=== PATIENT | female | born 1995 | race Caucasian/White ===

== ENCOUNTER 2018-09-19 19:29 | Inpatient (IN) | payer OTHER ==
[~2018-09-19] VITALS: Ht 170.2 cm; Wt 80.8 kg
[2018-09-19] MEDS: fentaNYL PF VIAL 100 MCG/2 ML VIAL IV PRN (20:14)
[2018-09-19] MEDS: ONDANSETRON PF 4 MG/2 ML VIAL. IV PRN (20:15)
[2018-09-19] MEDS: IV NORMAL SALINE 1000ML BAG 1,000 ML IV SCH (20:17)
[2018-09-19] MEDS ORDERED: PROCHLORPERAZINE 10 MG/2 ML VIAL. IV PRN (22:15)
[2018-09-19] MEDS: KETOROLAC 15 MG/ML VIAL. IV PRN ×2 (22:22→22:24)
[2018-09-19] MEDS: PROCHLORPERAZINE 10 MG/2 ML VIAL. IV PRN (22:23)
[2018-09-19 23:00] VITALS: BP 134/72
[2018-09-20] VITALS (20 sets, daily range): BP systolic 109–172; BP diastolic 39–94
--- NOTE | 2018-09-20 03:41 | NUR ---
The patient, JOSE WHAET, 23 y/o, F admitted by BRYANT TRUJILLO MD. Pt. arrived on unit at 1900 via gurney by EMS. Pt. was [place]'s transfer. Call light within reach, bed low. Pt. was given written information regarding hospital policies, unit procedures and contact persons. Valuables were left with pt. in her closet. Pt. complains of pain and nausea. Dr. Trujillo called for orders. Orders placed and followed. Will continue to monitor.
[2018-09-20 04:32] LABS: HEMATOCRIT 33.1 % (36.0-47.0); RED BLOOD COUNT 3.66 x10^6/uL (3.50-5.40); RED CELL DISTRIBUTION WIDTH 13.1 % (11.5-14.5); WHITE BLOOD COUNT 7.5 x10^3/uL (4.0-11.0)
[2018-09-20 04:58] LABS: ALBUMIN/GLOBULIN RATIO 1.1 (1.0-1.7); CALCIUM 8.2 mg/dL (8.5-10.1); CREATININE 0.7 mg/dL (0.6-1.0); GFR 102.8; POTASSIUM 3.3 mmol/L (3.5-5.1); TOTAL BILIRUBIN 3.5 mg/dL (0.2-1.0); TOTAL PROTEIN 5.7 g/dL (6.4-8.2)
[2018-09-20] MEDS: fentaNYL PF VIAL 100 MCG/2 ML VIAL IV PRN ×5 (05:39→15:32)
[2018-09-20] MEDS: PROCHLORPERAZINE 10 MG/2 ML VIAL. IV PRN ×2 (05:39→13:03)
[2018-09-20] MEDS: IV NORMAL SALINE 1000ML BAG 1,000 ML IV SCH ×2 (05:39→15:45)
--- NOTE | 2018-09-20 06:10 | NUR ---
Dr. Dick consulted by Dr. Pace. Consult called by this nurse at 0610.
[2018-09-20] MEDS ORDERED: IV RINGERS,LACTATED 1000ML 1,000 ML IV SCH (07:19)
[2018-09-20] MEDS ORDERED: PROCHLORPERAZINE 10 MG/2 ML VIAL. IV PRN (07:30)
[2018-09-20] MEDS ORDERED: LIDOCAINE 1% PF 2 ML VIAL. ID PRN (07:30)
[2018-09-20] MEDS ORDERED: ONDANSETRON PF 4 MG/2 ML VIAL. IV PRN (07:30)
[2018-09-20] MEDS ORDERED: fentaNYL PF VIAL 100 MCG/2 ML VIAL IV PRN (07:30)
[2018-09-20 09:29] LABS: U PREG PATIENT NEGATIVE (NEG)
--- NOTE | 2018-09-20 09:31 | PDOC2 ---
GI CONSULT Reason For Consult: Abnormal LFTs HPI: HPI: 23 y/o female w/ recurrent right-sided abd pain since late 2016, worse and occurring more frequently for a few months. Latest flare began on Monday, improved Monday, then was worse Monday after eating a chicken sandwich. Pain in RUQ w/ radiation down to RLQ wrapping around to lower back and radiating up to right shoulder blade. "Stabbing and aching." Has some heartburn but only if has been vomiting. No dysphagia. No hematemesis. Typically has "diarrhea" - bowl habits unchanged. No hematochezia or melena. No weight loss. No previous EGD or colonoscopy. Denies PUD, liver, or pancreas history. No NSAIDs. In [facility] ER 09/16/18, WBC 13.8, Hgb 14, normal LFTs. Abd US showed gallstones and sludge w/o biliary ductal dilatation. Pelvic US showed 2 echogenic lesions of right ovary (ddx hemorrhagic cysts or endometriosis). CT A/P w/ IV contrast showed linear calcification at posterior gallbladder, right adnexal lesion, question mild wall thickening of descending colon, normal appendix, and small hiatal hernia. ER note indicates suspicion for UTI, was discharged on Keflex, Reglan, and Zofran. Labs on 09/19/18 showed normal WBC, Hgb 12.8, INR 1.1, normal LFTs except for AST 56, and normal lipase. Today, labs show normal WBC and lipase, Hgb 11, bili 3.5, AST 812, ALT 673, Alk Phos 151. Plans for cholecystectomy w/ IOC. PMH: PMH: anxiety/depression Social History: Smoke: <1 pack per day ("just if they're there") ALCOHOL: other (was drinking heavily for a time but sober x 3 months) Drugs: Marijuana (daily) ROS: GEN: Denies fevers, chills, sweats HEENT: Denies blurred vision, sore throat CV: Denies chest pain RESP: Denies shortness of air, cough GI: Per HPI : Denies hematuria, dysuria ENDO: Denies weight changes NEURO: Denies confusion, dizziness MSK: Denies weakness, joint pain/swelling SKIN: Denies jaundice, pruritus Vitals: Vitals: Vital Signs Date Time Temp Pulse Resp B/P (MAP) Pulse Ox O2 Delivery O2 Flow Rate FiO2 09/20/18 07:00 98.9 78 18 118/70 (86) 96 Room Air 98.9 Labs: Labs: Laboratory Tests Test 09/20/18 04:10 White Blood Count 7.5 x10^3/uL (4.0-11.0) Red Blood Count 3.66 x10^6/uL (3.50-5.40) Hemoglobin 11.0 g/dL (12.0-15.5) Hematocrit 33.1 % (36.0-47.0) Mean Corpuscular Volume 90 fL (79-100) Mean Corpuscular Hemoglobin 30 pg (25-35) Mean Corpuscular Hemoglobin Concent 33 g/dL (31-37) Red Cell Distribution Width 13.1 % (11.5-14.5) Platelet Count 148 x10^3/uL (140-400) Sodium Level 140 mmol/L (136-145) Potassium Level 3.3 mmol/L (3.5-5.1) Chloride Level 104 mmol/L (98-107) Carbon Dioxide Level 24 mmol/L (21-32) Anion Gap 12 (6-14) Blood Urea Nitrogen 6 mg/dL (7-20) Creatinine 0.7 mg/dL (0.6-1.0) Estimated GFR (Cockcroft-Gault) 102.8 BUN/Creatinine Ratio 9 (6-20) Glucose Level 95 mg/dL (70-99) Calcium Level 8.2 mg/dL (8.5-10.1) Total Bilirubin 3.5 mg/dL (0.2-1.0) Aspartate Amino Transf (AST/SGOT) 872 U/L (15-37) Alanine Aminotransferase (ALT/SGPT) 673 U/L (14-59) Alkaline Phosphatase 157 U/L (46-116) Total Protein 5.7 g/dL (6.4-8.2) Albumin 3.0 g/dL (3.4-5.0) Albumin/Globulin Ratio 1.1 (1.0-1.7) Lipase 88 U/L (73-393) Allergies: Coded Allergies: No Known Drug Allergies (Unverified , 09/19/18) no allergies per pt. Medications: Current Medications Medications (Trade) Dose Ordered Sig/Lucretia Route PRN Reason Start Time Stop Time Status Last Admin Dose Admin Fentanyl Citrate (Fentanyl 2ml Vial) 50 mcg PRN Q3HRS PRN IV MODERATE TO SEVERE PAIN 09/19/18 19:45 09/20/18 05:39 Ondansetron HCl (Zofran) 4 mg PRN Q6HRS PRN IV NAUSEA/VOMITING 09/19/18 19:45 09/19/18 20:15 Sodium Chloride 1,000 ml @ 100 mls/hr Q10H IV 09/19/18 19:45 09/20/18 05:39 Prochlorperazine Edisylate (Compazine) 5 mg PRN Q6HRS PRN IV MODERATE NAUSEA/VOMITING 2ND 09/19/18 22:15 09/20/18 05:39 Ketorolac Tromethamine (Toradol 15mg Vial) 15 mg PRN Q6HRS PRN IV MODERATE PAIN 09/19/18 22:15 09/24/18 22:14 09/19/18 22:24 Imaging: Imaging: Per HPI. PE: GEN: NAD HEENT: Atraumatic, PERRL LUNGS: CTAB HEART: RRR ABD: NABS, S/ND, vague RUQ---> epigastric tenderness EXTREMITY: No edema SKIN: No rashes, no jaundice +tattoos NEURO/PSYCH: A & O 3 A/P: A/P: Recurrent abd pain, n/v Normocytic anemia, elevated LFTs Cholelithiasis/sludge Occasional heartburn CRC screen - average risk +marijuana, h/o heavy alcohol use (now sober) -- No biliary dilatation on US on 09/16/18. Monitor labs, await IOC. Add acid-financial aid. ALEJANDRINA BURRIS Sep 20, 2018 09:31
[2018-09-20] MEDS: PANTOPRAZOLE IV PUSH 40 MG VIAL. IVP SCH (09:52)
[2018-09-20] MEDS: PIPERACILLIN/TAZOBACTAM 3.375 GM in IV NORMAL SALINE 50ML 50 ML IV SCH ×2 (09:53→19:01)
--- NOTE | 2018-09-20 09:56 | HP ---
ADMIT DATE: 09/19/2018 HISTORY OF PRESENT ILLNESS: The patient is a 23-year-old female patient who presented yet again to the Emergency Room of [facility] with a complaint of abdominal pain. She apparently was extensively investigated and has had a CT scan of the abdomen and pelvis, which showed that the gallbladder was mildly distended with echogenic foci within the gallbladder with shadowing compatible with gallstones, no gallbladder wall thickening and no evidence of biliary ductal dilatation. There also appear to be some gallbladder sludge. She has had hepatobiliary scan, which showed delayed filling of the proximal gallbladder or cystic duct after morphine administration, probably cholecystitis, probably chronic cholecystitis, and therefore, the patient was transferred to [facility] to consult the surgical team for possible laparoscopic cholecystectomy. PAST MEDICAL HISTORY: Unremarkable. PAST SURGICAL HISTORY: Significant for wisdom teeth extraction, . HOME MEDICATIONS: Consist of Zoloft 100 mg once a day. She is also on a list of other medication that she is not really on recently. FAMILY HISTORY: She has one brother and one sister, younger and healthy. She does not know her biological father. Her mother is alive at age of 45 and has diabetes and thyroid disease. SOCIAL HISTORY: She is single, has one daughter 5 years old. She smokes 1-2 cigarettes a day, drinks alcohol occasionally, smokes marijuana. 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 REVIEW OF SYSTEMS: As per history of present illness. PHYSICAL EXAMINATION GENERAL: When I saw her today, she looked well and was clearly in no apparent respiratory distress. Slightly pale, but no jaundice, cyanosis or thyromegaly. No jugular venous distension. No lower limb edema. VITAL SIGNS: Her heart rate was 90, her blood pressure was 134/72, temperature was 99, respiratory rate was 18 and oxygen saturation was 95%. HEAD, EYES, EARS, NOSE AND THROAT: Showed normocephalic, atraumatic. NECK: Supple. HEART: Showed normal first and second heart sounds. No gallop, rub or murmur. CHEST: Clear to auscultation. No crepitation or rhonchi. ABDOMEN: Scaphoid, soft with tenderness mostly in the right upper quadrant. There is no guarding or rigidity. No organomegaly. All hernial orifice was intact. Bowel sounds normal. NEUROLOGIC: She was awake, alert. No guarding. No organomegaly. All hernial orifice intact. Bowel sounds normal. NEUROLOGIC: She was grossly intact. LABORATORY DATA: Showed that her white cell count was 9400, hemoglobin 12.8, hematocrit 37.8, MCV 89 and platelet count of 166,000. Her serum sodium was 143, potassium 3.5, chloride 105, bicarbonate 27, glucose was 93, BUN 9, creatinine 0.69. Total bilirubin, AST, ALT slightly elevated. CT scan and the hepatobiliary scan were all consistent with acute cholecystitis. She was admitted to [facility]. She was kept n.p.o., started on IV fluid, pain medication, antiemetic, and we have consulted the surgical team. BRYANT TRUJILLO MD DR: MENDOZA/maude JOB#: [id number] / [id number]
[2018-09-20] MEDS ORDERED: MIDAZOLAM HCL/PF 2 MG/2 ML VIAL. ONE (10:21)
[2018-09-20] MEDS ORDERED: PROPOFOL 20 ML IV ONE (10:21)
[2018-09-20] MEDS ORDERED: DEXAMETHASONE SOD PHOS 20 MG/5 ML VIAL. ONE (10:21)
[2018-09-20] MEDS ORDERED: fentaNYL PF VIAL 100 MCG/2 ML VIAL ONE ×3 (10:21→12:38)
[2018-09-20] MEDS ORDERED: ROCURONIUM 50 MG/5 ML VIAL. ONE (10:21)
[2018-09-20] MEDS ORDERED: ONDANSETRON PF 4 MG/2 ML VIAL. ONE (10:21)
[2018-09-20] MEDS ORDERED: LIDOCAINE 2% PF 5 ML VIAL. ONE (10:21)
[2018-09-20] MEDS ORDERED: SURGICEL HEMOSTAT 4X8 EACH. ONE (11:01)
[2018-09-20] MEDS ORDERED: BUPIVAC MPF-EPI 0.5%-1:200000 30 ML VIAL. ONE (11:01)
[2018-09-20] MEDS ORDERED: IOHEXOL 300 MG/ML 100ML VIAL. ONE (11:01)
[2018-09-20] MEDS ORDERED: SUCCINYLCHOLINE 200 MG/10 ML VIAL. ONE (11:15)
--- NOTE | 2018-09-20 11:22 | PDOC2 ---
CONSULT Date of Consult Date of Consult DATE: 09/20/18 TIME: 11:17 History of Present Illness Reason for Visit: The patient is a 23 year old female who reports having abdominal pain for around a year. The pain is typically located in the upper abdomen with radiation to the back. The pain is intermittent and has worsened in frequency over the last few weeks. This has caused her to report to the ER in [facility] on several occasions. During her evaluation she was found to have gallstones, and she was transferred to [facility]. She reports associated nausea and vomiting with her episodes of pain. Past Medical History Past Medical History denies Past Surgical History Past Surgical History Csection Social History <1 pack per day ("just if they're there") ALCOHOL: other (was drinking heavily for a time but sober x 3 months) Drugs: Marijuana (daily) Current Medications Current Medications Current Medications Fentanyl Citrate (Fentanyl 2ml Vial) 50 mcg PRN Q3HRS PRN IV MODERATE TO SEVERE PAIN Last administered on 09/20/18at 09:52; Start 09/19/18 at 19:45 Ondansetron HCl (Zofran) 4 mg PRN Q6HRS PRN IV NAUSEA/VOMITING Last administered on 09/19/18at 20:15; Start 09/19/18 at 19:45 Sodium Chloride 1,000 ml @ 100 mls/hr Q10H IV Last administered on 09/20/18at 05:39; Start 09/19/18 at 19:45 Prochlorperazine Edisylate (Compazine) 5 mg PRN Q6HRS PRN IV MODERATE NAUSEA/ VOMITING 2ND Last administered on 09/20/18at 05:39; Start 09/19/18 at 22:15 Prochlorperazine Edisylate (Compazine) 10 mg PRN Q6HRS PRN IV SEVERE NAUSEA/ VOMITING; Start 09/19/18 at 22:15 Ketorolac Tromethamine (Toradol 15mg Vial) 15 mg PRN Q6HRS PRN IV MODERATE PAIN Last administered on 09/19/18at 22:24; Start 09/19/18 at 22:15; Stop at 22:14 Ondansetron HCl (Zofran) 4 mg PRN Q6HRS PRN IV NAUSEA/VOMITING; Start 09/20/18 at 07:30; Stop 09/21/18 at 07:29 Fentanyl Citrate (Fentanyl 2ml Vial) 25 mcg PRN Q5MIN PRN IV MILD PAIN; Start 09/20/18 at 07:30; Stop 09/21/18 at 07:29 Fentanyl Citrate (Fentanyl 2ml Vial) 50 mcg PRN Q5MIN PRN IV MODERATE TO SEVERE PAIN; Start 09/20/18 at 07:30; Stop 09/21/18 at 07:29 Morphine Sulfate (Morphine Sulfate) 1 mg PRN Q10MIN PRN IV SEVERE PAIN; Start 09/20/18 at 07:30; Stop 09/21/18 at 07:29 Ringer's Solution 1,000 ml @ 30 mls/hr Q24H IV ; Start 09/20/18 at 07:19; Stop 09/20/18 at 19:18 Lidocaine HCl (Xylocaine-Mpf 1% 2ml Vial) 2 ml PRN 1X PRN ID PRIOR TO IV START ; Start 09/20/18 at 07:30; Stop 09/21/18 at 07:29 Hydromorphone HCl (Dilaudid) 0.5 mg PRN Q10MIN PRN IV SEV PAIN, Second choice; Start 09/20/18 at 07:30; Stop 09/21/18 at 07:29 Prochlorperazine Edisylate (Compazine) 5 mg PACU PRN PRN IV NAUSEA, MRX1; Start 09/20/18 at 07:30; Stop 09/21/18 at 07:29 Piperacillin Sod/ Tazobactam Sod 3.375 gm/Sodium Chloride 50 ml @ 100 mls/hr Q6HRS IV Last administered on 09/20/18at 09:53; Start 09/20/18 at 10:00 Pantoprazole Sodium (PROTONIX VIAL for IV PUSH) 40 mg DAILYAC IVP Last administered on 09/20/18at 09:52; Start 09/20/18 at 10:00 Propofol 20 ml @ As Directed STK-MED ONCE IV ; Start 09/20/18 at 10:21; Stop at 10:22; Status DC Dexamethasone Sodium Phosphate (Decadron) 20 mg STK-MED ONCE .ROUTE ; Start at 10:21; Stop 09/20/18 at 10:22; Status DC Lidocaine HCl (Lidocaine Pf 2% Vial) 5 ml STK-MED ONCE .ROUTE ; Start 09/20/18 at 10:21; Stop 09/20/18 at 10:22; Status DC Ondansetron HCl (Zofran) 4 mg STK-MED ONCE .ROUTE ; Start 09/20/18 at 10:21; Stop 09/20/18 at 10:22; Status DC Rocuronium Warren (Zemuron) 50 mg STK-MED ONCE .ROUTE ; Start 09/20/18 at 10:21 ; Stop 09/20/18 at 10:22; Status DC Fentanyl Citrate (Fentanyl 2ml Vial) 100 mcg STK-MED ONCE .ROUTE ; Start at 10:21; Stop 09/20/18 at 10:22; Status DC Midazolam HCl (Versed) 2 mg STK-MED ONCE .ROUTE ; Start 09/20/18 at 10:21; Stop 09/20/18 at 10:22; Status DC Bupivacaine HCl/ Epinephrine Bitart (Sensorcain-Mpf Epi 0.5%-1:[id number]) 30 ml STK -MED ONCE .ROUTE ; Start 09/20/18 at 11:01; Stop 09/20/18 at 11:02; Status DC Iohexol (Omnipaque 300 Mg/ml) 100 ml STK-MED ONCE .ROUTE ; Start 09/20/18 at 11: 01; Stop 09/20/18 at 11:02; Status DC Cellulose (Surgicel Hemostat 4x8) 1 each STK-MED ONCE .ROUTE ; Start 09/20/18 at 11:01; Stop 09/20/18 at 11:02; Status DC Active Scripts Active Reported No Known Medications Prior To Admisstion (Info) Each 1 Each MC 1X Allergies Allergies: Coded Allergies: No Known Drug Allergies (Unverified , 09/19/18) no allergies per pt. ROS General: No: Chills, Night Sweats, Fatigue, Malaise, Appetite, Other PSYCHOLOGICAL ROS: No: Anxiety, Behavioral Disorder, Concentration difficultie , Decreased libido, Depression, Disorientation, Hallucinations, Hostility, Irritablity, Memory difficulties, Mood Swings, Obsessive thoughts, Physical abuse, Sexual abuse, Sleep disturbances, Suicidal ideation, Other Eyes: No Blurry vision, No Decreased vision, No Double vision, No Dry eyes, No Excessive tearing, No Eye Pain, No Itchy Eyes, No Loss of vision, No Photophobia , No Scotomata, No Uses contacts, No Uses glasses, No Other HEENT: No: Heacaches, Visual Changes, Hearing change, Nasal congestion, Nasal discharge, Oral lesions, Sinus pain, Sore Throat, Epistaxis, Sneezing, Snoring, Tinnitus, Vertigo, Vocal changes, Other ALLERGY AND IMMUNOLOGY: No: Hives, Insect Bite Sensitivity, Itchy/Watery Eyes, Nasal Congestion, Post Nasal Drip, Seasonal Allergies, Other Hematological and Lymphatic: No: Bleeding Problems, Blood Clots, Blood Transfusions, Brusing, Night Sweats, Pallor, Swollen Lymph Nodes, Other Respiratory: No: Cough, Hemoptysis, Orthopnea, Pleuritic Pain, Shortness of breath, SOB with excertion, Sputum Changes, Stridor, Tachypnea, Wheezing, Other Cardiovascular: No Chest Pain, No Palpitations, No Orthopnea, No Paroxysmal Noc. Dyspnea, No Edema, No Lt Headedness, No Other Gastrointestinal: Yes Nausea, Yes Vomiting, Yes Abdominal Pain Genitourinary: No Dysuria, No Frequency, No Incontinence, No Hematuria, No Retention, No Discharge, No Urgency, No Pain, No Flank Pain, No Other, No , No , No , No , No , No , No Musculoskeletal: No Gait Disturbance, No Joint Pain, No Joint Stiffness, No Joint Swelling, No Muscle Pain, No Muscular Weakness, No Pain In:, No Swelling In:, No Other Neurological: No Behavorial Changes, No Bowel/Bladder ControlChng, No Confusion , No Dizziness, No Gait Disturbance, No Headaches, No Impaired Coord/balance, No Memory Loss, No Numbness/Tingling, No Seizures, No Speech Problems, No Tremors, No Visual Changes, No Weakness, No Other Skin: No Dry Skin, No Eczema, No Hair Changes, No Lumps, No Mole Changes, No Mottling, No Nail Changes, No Pruritus, No Rash, No Skin Lesion Changes, No Other, No Acne Physical Exam General: Alert, Oriented X3, Cooperative HEENT: Atraumatic, PERRLA Lungs: Clear to auscultation Abdomen: Soft (mildly tender RUQ) Extremities: No clubbing, No cyanosis Skin: No rashes Neuro: Normal speech Psych/Mental Status: Mental status NL MUSCULOSKELETAL: No joint tenderness, No deformity, No swelling Vitals VITALS Vital Signs Date Time Temp Pulse Resp B/P (MAP) Pulse Ox O2 Delivery O2 Flow Rate FiO2 09/20/18 10:45 98.6 78 18 132/75 99 Room Air 98.6 Labs Labs Laboratory Tests Test 09/20/18 04:10 09/20/18 08:45 White Blood Count 7.5 x10^3/uL (4.0-11.0) Red Blood Count 3.66 x10^6/uL (3.50-5.40) Hemoglobin 11.0 g/dL (12.0-15.5) Hematocrit 33.1 % (36.0-47.0) Mean Corpuscular Volume 90 fL (79-100) Mean Corpuscular Hemoglobin 30 pg (25-35) Mean Corpuscular Hemoglobin Concent 33 g/dL (31-37) Red Cell Distribution Width 13.1 % (11.5-14.5) Platelet Count 148 x10^3/uL (140-400) Sodium Level 140 mmol/L (136-145) Potassium Level 3.3 mmol/L (3.5-5.1) Chloride Level 104 mmol/L (98-107) Carbon Dioxide Level 24 mmol/L (21-32) Anion Gap 12 (6-14) Blood Urea Nitrogen 6 mg/dL (7-20) Creatinine 0.7 mg/dL (0.6-1.0) Estimated GFR (Cockcroft-Gault) 102.8 BUN/Creatinine Ratio 9 (6-20) Glucose Level 95 mg/dL (70-99) Calcium Level 8.2 mg/dL (8.5-10.1) Total Bilirubin 3.5 mg/dL (0.2-1.0) Aspartate Amino Transf (AST/SGOT) 872 U/L (15-37) Alanine Aminotransferase (ALT/SGPT) 673 U/L (14-59) Alkaline Phosphatase 157 U/L (46-116) Total Protein 5.7 g/dL (6.4-8.2) Albumin 3.0 g/dL (3.4-5.0) Albumin/Globulin Ratio 1.1 (1.0-1.7) Lipase 88 U/L (73-393) Urine Test Negative (NEG) Laboratory Tests Test 09/20/18 04:10 09/20/18 08:45 White Blood Count 7.5 x10^3/uL (4.0-11.0) Red Blood Count 3.66 x10^6/uL (3.50-5.40) Hemoglobin 11.0 g/dL (12.0-15.5) Hematocrit 33.1 % (36.0-47.0) Mean Corpuscular Volume 90 fL (79-100) Mean Corpuscular Hemoglobin 30 pg (25-35) Mean Corpuscular Hemoglobin Concent 33 g/dL (31-37) Red Cell Distribution Width 13.1 % (11.5-14.5) Platelet Count 148 x10^3/uL (140-400) Sodium Level 140 mmol/L (136-145) Potassium Level 3.3 mmol/L (3.5-5.1) Chloride Level 104 mmol/L (98-107) Carbon Dioxide Level 24 mmol/L (21-32) Anion Gap 12 (6-14) Blood Urea Nitrogen 6 mg/dL (7-20) Creatinine 0.7 mg/dL (0.6-1.0) Estimated GFR (Cockcroft-Gault) 102.8 BUN/Creatinine Ratio 9 (6-20) Glucose Level 95 mg/dL (70-99) Calcium Level 8.2 mg/dL (8.5-10.1) Total Bilirubin 3.5 mg/dL (0.2-1.0) Aspartate Amino Transf (AST/SGOT) 872 U/L (15-37) Alanine Aminotransferase (ALT/SGPT) 673 U/L (14-59) Alkaline Phosphatase 157 U/L (46-116) Total Protein 5.7 g/dL (6.4-8.2) Albumin 3.0 g/dL (3.4-5.0) Albumin/Globulin Ratio 1.1 (1.0-1.7) Lipase 88 U/L (73-393) Urine Test Negative (NEG) Assessment/Plan Assessment/Plan Gallstones, abdominal pain; note LFTs at [facility] were normal, they are increase this morning. Plan for lap van with IOC. The details and risks of surgery were discussed. She understands and would like to proceed. LNADY FELDMAN MD Sep 20, 2018 11:22
[2018-09-20] MEDS ORDERED: GLYCOPYRROLATE 1 MG/5 ML VIAL. ONE (11:51)
[2018-09-20] MEDS ORDERED: SEVOFLURANE 61 TO 120 MINUTES. IH ONE (11:51)
[2018-09-20] MEDS ORDERED: PROCHLORPERAZINE 10 MG/2 ML VIAL. ONE (12:39)
--- NOTE | 2018-09-20 12:43 | PDOC4 ---
Operative Note Operative Note Operative Note: Preoperative Diagnosis: Calculous cholecystitis Postoperative Diagnosis: Calculous cholecystitis, choledocholithiasis Procedure: Laparoscopic cholecystectomy with intraoperative cholangiogram Surgeons: Sanjeev Franchise Manager: Opal HENDRIX Anesthesia: Gen. Estimated Blood Loss: 50 mL Specimen: Gallbladder to pathology Drains: 19 Fr OLEGARIO Findings: suspect distal CBD stone Complications: None Indications: The patient is a 23-year-old female who is been experiencing recurrent upper abdominal pain consistent with biliary colic. Surgical treatment was offered by means of a laparoscopic cholecystectomy. The risks of surgery were discussed which include bleeding, infection, bile duct injury, bile leak, pain, the potential for additional surgeries or procedures. The patient understands and would like to proceed. Description: The patient was taken to the operating room and laid supine on the operating table. General anesthesia was performed. The abdomen was prepped with ChloraPrep and draped in a standard surgical fashion. A small infraumbilical incision was made with a scalpel. The Veress needle was then inserted and a pneumoperitoneum was then created. A 5 mm trocar was then inserted and the laparoscope was introduced. In the upper midabdomen a 5 mm trocar was inserted and in the right upper quadrant one 2.3 mm mini lap grasper and one 5 mm trocar were inserted. The gallbladder was distended and we aspirated approximately 55 mL of bilious fluid providing decompression. The gallbladder was retracted cephalad. The cystic duct was dissected free from surrounding tissues. One clip was placed on the duct near the gallbladder junction. An opening was made in the duct and a cholangiocatheter placed within and secured with a clip. Using contrast dye and fluoroscopy an intraoperative cholangiogram was performed that showed probable obstruction at the distal CBD consistent with a stone. The clip and catheter were then withdrawn. Three clips were placed on the cystic duct and it was divided. The cystic artery was then identified, dissected free, doubly clipped and divided as well. The gallbladder was then mobilized away from the liver with cautery. The umbilical 5 millimeter trocar was exchanged for an 11 millimeter trocar. A 19Fr OLEGARIO drain was placed in the gallbladder fossa with the exit site in the lateral port incision. This was secured to the skin with 2-0 silk. The gallbladder was then placed in an endoscopic bag and extracted at the umbilical trocar site. The fascia there was closed with an 0 Vicryl suture. All blood and irrigation fluid was suctioned and hemostasis was good. The remaining ports were removed and the pneumoperitoneum was relieved. The skin incisions were injected with half percent Marcaine with epinephrine, and all were closed using 4-0 Monocryl suture. Steri-Strips and dressings were then applied. The patient tolerated the procedure well and was sent to the recovery room in stable condition. At the end of the case all counts were correct. ALNDY FELDMAN MD Sep 20, 2018 12:43
--- NOTE | 2018-09-20 12:59 | NUR ---
SW following for discharge planning. Discussed with RN. Pt having surgery today. SW will continue to follow.
[2018-09-20] MEDS ORDERED: MORPHINE SULFATE 2 MG/ML VIAL. ONE (13:01)
[2018-09-20] MEDS: MORPHINE SULFATE 2 MG/ML VIAL. IV PRN ×2 (13:04→13:14)
[2018-09-20] MEDS ORDERED: MEPERIDINE PF 25 MG/ML VIAL. ONE (13:07)
[2018-09-20] MEDS: MEPERIDINE PF 25 MG/ML VIAL. IV PRN ×2 (13:15→13:29)
[2018-09-20] MEDS ORDERED: HYDROmorphone 2 MG/ML VIAL ONE (13:17)
[2018-09-20] MEDS: HYDROmorphone 2 MG/ML VIAL IV PRN ×4 (13:18→13:56)
--- NOTE | 2018-09-20 13:30 | RAD ---
CHOLANGIOGRAM INTRAOPERATIVE Clinical Indication: Cholangiogram in OR. Comparison: None. Findings: Intraoperative fluoroscopy provided by the technologist. Total fluoroscopy time 44 seconds. 3 fluoroscopic spot images. Contrast is injected into the cystic duct remnant. There is filling of intrahepatic and extrahepatic ducts. There is a meniscus sign of the distal extrahepatic duct. There is no spillage into the duodenum. Cannot exclude distal choledocholith. No other filling defect is seen. IMPRESSION: Meniscus sign of the distal extrahepatic duct without spillage of contrast into the duodenum. Cannot exclude distal choledocholithiasis. Electronically signed by: Kelvin Costello MD (09/20/2018 1:26 PM) [id number]
[2018-09-20] MEDS: KETOROLAC 15 MG/ML VIAL. IV PRN ×2 (15:00→23:17)
[2018-09-20] MEDS: oxyCODONE/APAP 5/325 1 TAB TABLET PO PRN ×2 (15:00→20:37)
--- NOTE | 2018-09-20 15:15 | NUR ---
Spoke with Ryan Walton discussing pt ABT regimen. Home Zoysn scheduled every 8 hours. Hospital Zoysn scheduled every 6 hours. Hospital Zoysn 1800 held to follow home schedule. Isabelle explains pt will get Zoysn dose at 2100. Addendum: 09/20/18 at 2015 by IVETH LIZAMA RN Wrong pt
--- NOTE | 2018-09-20 16:30 | NUR ---
Spoke with [facility] pharmacist explaining it is ok to change medication oxycodone 60mg 1 tab to oxycodone 30mg 2 tabs. Pharmacist explains she will only be able to dispense #30. Voiced understanding. Explained to pt situation. Pt voiced understanding explaining she is following up with primary in AM and will get pain medication from her. Addendum: 09/20/18 at 2015 by IVETH LIZAMA RN Wrong pt
--- NOTE | 2018-09-20 19:00 | NUR ---
Discharge orders placed. Discussed discharge instructions/medications with pt. Explained pt will have home health visit tomorrow and Ryan for home infusion tonight. Lab work order given to pt explaining labs need to be drawn weekly. Follow up appt for Dr. Martinez and Dr. Mckinley need to be made for 2 weeks. Pt voiced understanding. Prescription, oxycodone 60mg #30, given to to fill. Discussed dressing needs to stay dry. If dressing gets saturated pt may change. Extra STEPHEN dressing given to pt. PICC care given to pt. Pt wheeled off unit accompanied by DEONTE Warren and pt without complications. Addendum: 09/20/18 at 2015 by IVETH LIZAMA RN Wrong pt
--- NOTE | 2018-09-20 20:09 | PN ---
DATE: 09/20/2018 SUBJECTIVE: The patient is resting slightly propped up in bed, no apparent distress. Awake and alert. On questioning her, she continued to complain of pain in her right upper quadrant. No nausea and no vomiting. She was seen by the surgical team and she is scheduled for laparoscopic cholecystectomy sometimes this morning. OBJECTIVE: On examining her, her temperature is stable and afebrile. LABORATORY DATA: Her white cell count was 7500; hemoglobin 11; hematocrit 33; MCV 90 and platelet count of 148,000. Her serum sodium was 140, potassium 3.3, chloride was 104, bicarbonate 24, anion gap 12, BUN 6, creatinine 0.7, estimated GFR was 102 mL per minute and her glucose was 95. Calcium was 8.2. Her total bilirubin, AST, ALT and alkaline phosphatase were elevated. Her total protein was 5.7, albumin 3. However, serum lipase was normal. ASSESSMENT AND PLAN: Acute cholecystitis, scheduled for laparoscopic cholecystectomy this morning. BRYANT TRUJILLO MD DR: MENDOZA/maude JOB#: [id number] / [id number]
[2018-09-21] MEDS: PIPERACILLIN/TAZOBACTAM 3.375 GM in IV NORMAL SALINE 50ML 50 ML IV SCH ×4 (01:42→18:22)
[2018-09-21] MEDS: IV NORMAL SALINE 1000ML BAG 1,000 ML IV SCH ×3 (01:45→22:45)
[2018-09-21 03:21] VITALS: BP 116/64
--- NOTE | 2018-09-21 03:44 | NUR ---
Pt. tolerating PO fluids.
[2018-09-21] MEDS: oxyCODONE/APAP 5/325 1 TAB TABLET PO PRN ×3 (04:22→20:45)
[2018-09-21] MEDS: PANTOPRAZOLE IV PUSH 40 MG VIAL. IVP SCH (05:49)
[2018-09-21] MEDS ORDERED: PROPOFOL 20 ML IV ONE (06:38)
[2018-09-21] MEDS ORDERED: SUCCINYLCHOLINE 200 MG/10 ML VIAL. ONE (06:38)
[2018-09-21] MEDS ORDERED: DEXAMETHASONE SOD PHOS 20 MG/5 ML VIAL. ONE (06:38)
[2018-09-21] MEDS ORDERED: LIDOCAINE 2% PF 5 ML VIAL. ONE (06:38)
[2018-09-21] MEDS ORDERED: ONDANSETRON PF 4 MG/2 ML VIAL. ONE (06:38)
[2018-09-21 07:00] VITALS: BP 131/74
[2018-09-21] MEDS ORDERED: IV RINGERS,LACTATED 1000ML 1,000 ML IV SCH ×2 (07:00→08:02)
[2018-09-21 08:10] LABS: ALBUMIN 2.7 g/dL (3.4-5.0); CREATININE 0.8 mg/dL (0.6-1.0); GFR 88.1; POTASSIUM 3.4 mmol/L (3.5-5.1); TOTAL BILIRUBIN 4.5 mg/dL (0.2-1.0); TOTAL PROTEIN 5.4 g/dL (6.4-8.2)
[2018-09-21 08:11] LABS: BASO % 0 % (0-3); EOS # 0.1 x10^3/uL (0.0-0.7); EOS % 1 % (0-3); HEMATOCRIT 31.3 % (36.0-47.0); HEMOGLOBIN 10.4 g/dL (12.0-15.5); LYMPH # 1.8 x10^3/uL (1.0-4.8); LYMPH % 19 % (24-48); MEAN CORPUSCULAR HEMOGLOBIN 30 pg (25-35); MEAN CORPUSCULAR HGB CONC 33 g/dL (31-37); MEAN CORPUSCULAR VOLUME 91 fL (79-100); MONO # 0.8 x10^3/uL (0.0-1.1); MONO % 9 % (0-9); NEUT # 6.7 x10^3uL (1.8-7.7); NEUT % 71 % (31-73); PLATELET COUNT 148 x10^3/uL (140-400); RED BLOOD COUNT 3.45 x10^6/uL (3.50-5.40); RED CELL DISTRIBUTION WIDTH 13.4 % (11.5-14.5); WHITE BLOOD COUNT 9.4 x10^3/uL (4.0-11.0)
[2018-09-21] MEDS ORDERED: LIDOCAINE 1% PF 2 ML VIAL. ID PRN (08:15)
[2018-09-21] MEDS ORDERED: fentaNYL PF VIAL 100 MCG/2 ML VIAL IV PRN ×2 (08:15)
[2018-09-21] MEDS ORDERED: MIDAZOLAM HCL/PF 2 MG/2 ML VIAL. IV PRN (08:15)
--- NOTE | 2018-09-21 08:43 | PN ---
DATE: 09/21/2018 The patient was admitted yesterday with acute cholecystitis and underwent laparoscopic cholecystectomy with intraoperative cholangiogram. Apparently, she has also cholelithiasis, and she is scheduled for endoscopic retrograde cholangiopancreatography this morning. When I saw her, she was awake, alert, resting slightly, propped up in bed, in no apparent distress. She said that the pain only when she moves, but denied any nausea or vomiting. Denied any chills, rigors or fever. OBJECTIVE: GENERAL: When I examined her, she looked pale, no jaundice, cyanosis or thyromegaly. No jugular venous distension. No lower limb edema. VITAL SIGNS: Her heart rate was 70, blood pressure 116/64, temperature was 98.4, respiratory rate was 16 and oxygen saturation was 97%. ABDOMEN: Showed some tenderness in the right upper quadrant. Unfortunately, no lab works were done. Her intake and output were incompletely recorded. As of yesterday, her bilirubin was high at 3.5. AST, ALT and alkaline phosphatase are all elevated. Her lipase, however, was normal at 88, and urine was negative. ASSESSMENT: Acute cholecystitis, status post laparoscopic cholecystectomy with intraoperative cholangiogram. The patient has apparently cholelithiasis, and she is scheduled for endoscopic retrograde cholangiopancreatography this morning. Apparently, she has stones in her common bile duct. My plan is to do stat lab work, continue with IV antibiotic to prevent ascending cholangitis and monitor her lab works in response on a daily basis. BRYANT TRUJILLO MD DR: MENDOZA/maude JOB#: [id number] / [id number]
[2018-09-21] MEDS ORDERED: IOHEXOL 300 MG/ML 100ML VIAL. ONE (09:08)
--- NOTE | 2018-09-21 09:39 | PDOC4 ---
Operative Note Operative Note ERCP with sphincterotomy Meds Propofol per anesthesia Pre-op dx jaundice/abnl IOC post-op dx choledocholithiasis s/p sphincterotomy without retained stones on cholangiogram at termination of procedure Plan advance diet and activity in am if no post-ercp pancreatitis LANDY RODRIGUEZ MD Sep 21, 2018 09:39
[2018-09-21] MEDS: fentaNYL PF VIAL 100 MCG/2 ML VIAL IV PRN ×2 (09:57→15:56)
--- NOTE | 2018-09-21 10:26 | NUR ---
PT RETURNED FROM HER ERCP. BASKET EXTRACTION OF STONES REPORTED. PT DID HAVE DISCOMFORT BUT RECEIVED IV FENTANYL WELL PO PERCOCET. SHE WAS ABLE TO MOVE TO HER BED FROM THE CART WITHOUT COMPLICATIONS. SWALLOW IS INTACT.
--- NOTE | 2018-09-21 10:49 | PDOC ---
RAZIA ROMERO MANAGER OF PROGRAM 09/21/18 1049: SURGICAL PROGRESS NOTE Subjective just back from ERCP tired,some pain Vital Signs Vital Signs Date Time Temp Pulse Resp B/P (MAP) Pulse Ox O2 Delivery O2 Flow Rate FiO2 09/21/18 10:10 76 18 135/72 98 Room Air 09/21/18 09:58 98.4 98.4 09/21/18 09:43 6 I&O Intake and Output 09/21/18 07:00 Intake Total 1657 ml Output Total 380 ml Balance 1277 ml Intake Oral 665 ml IV Total 992 ml Output Urine Total 300 ml Drainage Total 30 ml Estimated Blood Loss 50 ml # Voids 13 # Bowel Movements 1 General: Alert, Oriented X3, Cooperative, No acute distress Abdomen: Soft, Other (drain serosang) Labs Laboratory Tests Test 09/20/18 04:10 09/20/18 08:45 09/21/18 07:48 White Blood Count 7.5 x10^3/uL (4.0-11.0) 9.4 x10^3/uL (4.0-11.0) Red Blood Count 3.66 x10^6/uL (3.50-5.40) 3.45 x10^6/uL (3.50-5.40) Hemoglobin 11.0 g/dL (12.0-15.5) 10.4 g/dL (12.0-15.5) Hematocrit 33.1 % (36.0-47.0) 31.3 % (36.0-47.0) Mean Corpuscular Volume 90 fL (79-100) 91 fL (79-100) Mean Corpuscular Hemoglobin 30 pg (25-35) 30 pg (25-35) Mean Corpuscular Hemoglobin Concent 33 g/dL (31-37) 33 g/dL (31-37) Red Cell Distribution Width 13.1 % (11.5-14.5) 13.4 % (11.5-14.5) Platelet Count 148 x10^3/uL (140-400) 148 x10^3/uL (140-400) Sodium Level 140 mmol/L (136-145) 137 mmol/L (136-145) Potassium Level 3.3 mmol/L (3.5-5.1) 3.4 mmol/L (3.5-5.1) Chloride Level 104 mmol/L (98-107) 104 mmol/L (98-107) Carbon Dioxide Level 24 mmol/L (21-32) 24 mmol/L (21-32) Anion Gap 12 (6-14) 9 (6-14) Blood Urea Nitrogen 6 mg/dL (7-20) 5 mg/dL (7-20) Creatinine 0.7 mg/dL (0.6-1.0) 0.8 mg/dL (0.6-1.0) Estimated GFR (Cockcroft-Gault) 102.8 88.1 BUN/Creatinine Ratio 9 (6-20) 6 (6-20) Glucose Level 95 mg/dL (70-99) 100 mg/dL (70-99) Calcium Level 8.2 mg/dL (8.5-10.1) 8.0 mg/dL (8.5-10.1) Total Bilirubin 3.5 mg/dL (0.2-1.0) 4.5 mg/dL (0.2-1.0) Aspartate Amino Transf (AST/SGOT) 872 U/L (15-37) 212 U/L (15-37) Alanine Aminotransferase (ALT/SGPT) 673 U/L (14-59) 418 U/L (14-59) Alkaline Phosphatase 157 U/L (46-116) 165 U/L (46-116) Total Protein 5.7 g/dL (6.4-8.2) 5.4 g/dL (6.4-8.2) Albumin 3.0 g/dL (3.4-5.0) 2.7 g/dL (3.4-5.0) Albumin/Globulin Ratio 1.1 (1.0-1.7) 1.0 (1.0-1.7) Lipase 88 U/L (73-393) 76 U/L (73-393) Urine Test Negative (NEG) Neutrophils (%) (Auto) 71 % (31-73) Lymphocytes (%) (Auto) 19 % (24-48) Monocytes (%) (Auto) 9 % (0-9) Eosinophils (%) (Auto) 1 % (0-3) Basophils (%) (Auto) 0 % (0-3) Neutrophils # (Auto) 6.7 x10^3uL (1.8-7.7) Lymphocytes # (Auto) 1.8 x10^3/uL (1.0-4.8) Monocytes # (Auto) 0.8 x10^3/uL (0.0-1.1) Eosinophils # (Auto) 0.1 x10^3/uL (0.0-0.7) Basophils # (Auto) 0.0 x10^3/uL (0.0-0.2) Laboratory Tests Test 09/21/18 07:48 White Blood Count 9.4 x10^3/uL (4.0-11.0) Red Blood Count 3.45 x10^6/uL (3.50-5.40) Hemoglobin 10.4 g/dL (12.0-15.5) Hematocrit 31.3 % (36.0-47.0) Mean Corpuscular Volume 91 fL (79-100) Mean Corpuscular Hemoglobin 30 pg (25-35) Mean Corpuscular Hemoglobin Concent 33 g/dL (31-37) Red Cell Distribution Width 13.4 % (11.5-14.5) Platelet Count 148 x10^3/uL (140-400) Neutrophils (%) (Auto) 71 % (31-73) Lymphocytes (%) (Auto) 19 % (24-48) Monocytes (%) (Auto) 9 % (0-9) Eosinophils (%) (Auto) 1 % (0-3) Basophils (%) (Auto) 0 % (0-3) Neutrophils # (Auto) 6.7 x10^3uL (1.8-7.7) Lymphocytes # (Auto) 1.8 x10^3/uL (1.0-4.8) Monocytes # (Auto) 0.8 x10^3/uL (0.0-1.1) Eosinophils # (Auto) 0.1 x10^3/uL (0.0-0.7) Basophils # (Auto) 0.0 x10^3/uL (0.0-0.2) Sodium Level 137 mmol/L (136-145) Potassium Level 3.4 mmol/L (3.5-5.1) Chloride Level 104 mmol/L (98-107) Carbon Dioxide Level 24 mmol/L (21-32) Anion Gap 9 (6-14) Blood Urea Nitrogen 5 mg/dL (7-20) Creatinine 0.8 mg/dL (0.6-1.0) Estimated GFR (Cockcroft-Gault) 88.1 BUN/Creatinine Ratio 6 (6-20) Glucose Level 100 mg/dL (70-99) Calcium Level 8.0 mg/dL (8.5-10.1) Total Bilirubin 4.5 mg/dL (0.2-1.0) Aspartate Amino Transf (AST/SGOT) 212 U/L (15-37) Alanine Aminotransferase (ALT/SGPT) 418 U/L (14-59) Alkaline Phosphatase 165 U/L (46-116) Total Protein 5.4 g/dL (6.4-8.2) Albumin 2.7 g/dL (3.4-5.0) Albumin/Globulin Ratio 1.0 (1.0-1.7) Lipase 76 U/L (73-393) Assessment/Plan s/p van, ERCP labs in AM LANDY FELDMAN MD 09/21/18 1432: SURGICAL PROGRESS NOTE Assessment/Plan Agree with above RAZIA ROMERO MANAGER OF PROGRAM Sep 21, 2018 10:49 LANDY FELMDAN MD Sep 21, 2018 14:32
[2018-09-21 11:00] VITALS: BP 125/71
[2018-09-21] MEDS: KETOROLAC 15 MG/ML VIAL. IV PRN ×2 (12:04→19:41)
--- NOTE | 2018-09-21 12:15 | NUR ---
SW following. Discussed with RN, pt had a procedure today. RN advised no SW needs at this time. SW will continue to follow.
--- NOTE | 2018-09-21 14:00 | NUR ---
Assuming care for this pt at this time, walking round report obtained from SADIA Muller. Will continue to monitor.
[2018-09-21 15:00] VITALS: BP 126/75
--- NOTE | 2018-09-21 17:10 | PATHOLOGY ---
[facility] Accession Number: [id number] . 01 Material submitted: . GALLBLADDER SAC WITH CONTENTS . 01 Clinical history: . Gallstones. . 02 Diagnosis: Gallbladder, laparoscopic cholecystectomy: - Cholelithiasis. - Chronic and focal mild acute cholecystitis with increased eosinophils. ([facility] 09/21/2018) P/09/21/2018 . 02 Comment: There is no evidence of malignancy. ([facility] 09/21/2018) . 02 Electronically signed: . Ang Stinson MD, Pathologist NPI- [id number] . 01 Gross description: . Received in formalin labeled "Sam, Estella, gallbladder sac with contents" is an 8.7 x 3.5 x 2.7 cm intact cholecystectomy specimen. The serosa is pink-red and focally hemorrhagic. The specimen is opened to reveal red-pink hemorrhagic mucosa with moderate yellow stippling. No polyps or masses are identified, and the wall thickness measures 0.3 cm. Multiple yellow-tran friable calculi are present within the gallbladder measuring in aggregate 4.5 x 2.5 x 0.5 cm and ranging from 0.1-0.5 cm in greatest dimension. Party Coordinator sections of the fundus and body and the cystic duct margin are submitted in cassette A1. [place] [place] SYC/SYC . 02 Pathologist provided ICD-10: K80.12 . 02 CPT . 812873 Specimen Comment: A courtesy copy of this report has been sent to Specimen Comment: [phone]. Specimen Comment: Report sent to Performed at: [address], [place], [place] [id number] MD Anuel Gibson MD Phone: [phone] Performed at: [address] [id number] MD Ang Stinson MD Phone: [phone]
[2018-09-21 19:00] VITALS: BP 124/86
[2018-09-21 23:00] VITALS: BP 131/71
[2018-09-21] MEDS ORDERED: diphenhydrAMINE HCL 25 MG CAPSULE PO PRN ×2 (23:00)
--- NOTE | 2018-09-21 23:00 | NUR ---
Patient complaining of itching at this time, requesting medication. MD contacted and advised, order received. Will continue to monitor.
[2018-09-22] MEDS: PIPERACILLIN/TAZOBACTAM 3.375 GM in IV NORMAL SALINE 50ML 50 ML IV SCH ×4 (00:01→16:55)
[2018-09-22] MEDS: oxyCODONE/APAP 5/325 1 TAB TABLET PO PRN ×3 (02:45→20:59)
[2018-09-22 03:28] VITALS: BP 142/77
[2018-09-22 04:56] LABS: BASO % 0 % (0-3); EOS # 0.1 x10^3/uL (0.0-0.7); EOS % 1 % (0-3); HEMATOCRIT 31.3 % (36.0-47.0); HEMOGLOBIN 10.3 g/dL (12.0-15.5); LYMPH # 2.6 x10^3/uL (1.0-4.8); LYMPH % 27 % (24-48); MEAN CORPUSCULAR HEMOGLOBIN 30 pg (25-35); MEAN CORPUSCULAR HGB CONC 33 g/dL (31-37); MEAN CORPUSCULAR VOLUME 91 fL (79-100); MONO # 0.7 x10^3/uL (0.0-1.1); MONO % 8 % (0-9); NEUT # 6.3 x10^3uL (1.8-7.7); NEUT % 64 % (31-73); PLATELET COUNT 155 x10^3/uL (140-400); RED BLOOD COUNT 3.45 x10^6/uL (3.50-5.40); RED CELL DISTRIBUTION WIDTH 13.8 % (11.5-14.5); WHITE BLOOD COUNT 9.8 x10^3/uL (4.0-11.0)
[2018-09-22 05:17] LABS: AMYLASE 87 U/L (25-115); LIPASE 583 U/L (73-393)
[2018-09-22 05:19] LABS: ALBUMIN 2.9 g/dL (3.4-5.0); ALBUMIN/GLOBULIN RATIO 1.2 (1.0-1.7); CALCIUM 7.8 mg/dL (8.5-10.1); CREATININE 0.9 mg/dL (0.6-1.0); GFR 76.9; POTASSIUM 3.4 mmol/L (3.5-5.1); TOTAL PROTEIN 5.4 g/dL (6.4-8.2)
[2018-09-22] MEDS: PANTOPRAZOLE IV PUSH 40 MG VIAL. IVP SCH (05:54)
[2018-09-22] MEDS: PROCHLORPERAZINE 10 MG/2 ML VIAL. IV PRN (05:59)
[2018-09-22] MEDS: KETOROLAC 15 MG/ML VIAL. IV PRN ×2 (05:59→17:02)
[2018-09-22] MEDS: IV NORMAL SALINE 1000ML BAG 1,000 ML IV SCH (06:00)
[2018-09-22 07:00] VITALS: BP 138/78
--- NOTE | 2018-09-22 07:25 | PDOC ---
GI PROGRESS NOTES Date Date/Time DATE: 09/22/18 TIME: 07:25 Objective Vitals Vital Signs Date Time Temp Pulse Resp B/P (MAP) Pulse Ox O2 Delivery O2 Flow Rate FiO2 09/22/18 03:45 Room Air 09/22/18 03:28 98.1 62 18 142/77 (98) 96 Room Air 98.1 09/22/18 02:45 Room Air 09/21/18 23:00 99.1 66 18 131/71 (91) 97 Room Air 99.1 09/21/18 20:45 Room Air 09/21/18 19:40 Room Air 09/21/18 19:00 98.9 69 18 124/86 (99) 99 Room Air 98.9 09/21/18 17:27 Room Air 09/21/18 15:56 Room Air 09/21/18 15:00 98.1 60 18 126/75 (92) 97 Room Air 98.1 09/21/18 11:08 18 09/21/18 11:00 98.3 70 16 125/71 (89) 95 Room Air 98.3 09/21/18 10:27 18 09/21/18 10:10 76 18 135/72 98 Room Air 09/21/18 10:08 18 98 Room Air 09/21/18 09:58 98.4 78 18 139/75 98 Room Air 98.4 09/21/18 09:57 18 98 Room Air 09/21/18 09:43 98.4 96 18 133/63 100 Room Air 6 98.4 09/21/18 08:14 Room Air 10 09/21/18 08:13 98.6 62 20 96 98.6 Labs Labs Laboratory Tests Test 09/21/18 07:48 09/22/18 03:50 White Blood Count 9.4 x10^3/uL (4.0-11.0) 9.8 x10^3/uL (4.0-11.0) Red Blood Count 3.45 x10^6/uL (3.50-5.40) 3.45 x10^6/uL (3.50-5.40) Hemoglobin 10.4 g/dL (12.0-15.5) 10.3 g/dL (12.0-15.5) Hematocrit 31.3 % (36.0-47.0) 31.3 % (36.0-47.0) Mean Corpuscular Volume 91 fL (79-100) 91 fL (79-100) Mean Corpuscular Hemoglobin 30 pg (25-35) 30 pg (25-35) Mean Corpuscular Hemoglobin Concent 33 g/dL (31-37) 33 g/dL (31-37) Red Cell Distribution Width 13.4 % (11.5-14.5) 13.8 % (11.5-14.5) Platelet Count 148 x10^3/uL (140-400) 155 x10^3/uL (140-400) Neutrophils (%) (Auto) 71 % (31-73) 64 % (31-73) Lymphocytes (%) (Auto) 19 % (24-48) 27 % (24-48) Monocytes (%) (Auto) 9 % (0-9) 8 % (0-9) Eosinophils (%) (Auto) 1 % (0-3) 1 % (0-3) Basophils (%) (Auto) 0 % (0-3) 0 % (0-3) Neutrophils # (Auto) 6.7 x10^3uL (1.8-7.7) 6.3 x10^3uL (1.8-7.7) Lymphocytes # (Auto) 1.8 x10^3/uL (1.0-4.8) 2.6 x10^3/uL (1.0-4.8) Monocytes # (Auto) 0.8 x10^3/uL (0.0-1.1) 0.7 x10^3/uL (0.0-1.1) Eosinophils # (Auto) 0.1 x10^3/uL (0.0-0.7) 0.1 x10^3/uL (0.0-0.7) Basophils # (Auto) 0.0 x10^3/uL (0.0-0.2) 0.0 x10^3/uL (0.0-0.2) Sodium Level 137 mmol/L (136-145) 140 mmol/L (136-145) Potassium Level 3.4 mmol/L (3.5-5.1) 3.4 mmol/L (3.5-5.1) Chloride Level 104 mmol/L (98-107) 105 mmol/L (98-107) Carbon Dioxide Level 24 mmol/L (21-32) 24 mmol/L (21-32) Anion Gap 9 (6-14) 11 (6-14) Blood Urea Nitrogen 5 mg/dL (7-20) 5 mg/dL (7-20) Creatinine 0.8 mg/dL (0.6-1.0) 0.9 mg/dL (0.6-1.0) Estimated GFR (Cockcroft-Gault) 88.1 76.9 BUN/Creatinine Ratio 6 (6-20) 6 (6-20) Glucose Level 100 mg/dL (70-99) 98 mg/dL (70-99) Calcium Level 8.0 mg/dL (8.5-10.1) 7.8 mg/dL (8.5-10.1) Total Bilirubin 4.5 mg/dL (0.2-1.0) 2.0 mg/dL (0.2-1.0) Aspartate Amino Transf (AST/SGOT) 212 U/L (15-37) 108 U/L (15-37) Alanine Aminotransferase (ALT/SGPT) 418 U/L (14-59) 350 U/L (14-59) Alkaline Phosphatase 165 U/L (46-116) 156 U/L (46-116) Total Protein 5.4 g/dL (6.4-8.2) 5.4 g/dL (6.4-8.2) Albumin 2.7 g/dL (3.4-5.0) 2.9 g/dL (3.4-5.0) Albumin/Globulin Ratio 1.0 (1.0-1.7) 1.2 (1.0-1.7) Lipase 76 U/L (73-393) 583 U/L (73-393) Amylase Level 87 U/L (25-115) Assessment Assessment alculous cholecystitis, choledocholithiasis Procedure: Laparoscopic cholecystectomy with intraoperative cholangiogram DRE MOSER MD Sep 22, 2018 07:25
--- NOTE | 2018-09-22 07:29 | PDOC ---
Progress Note ROS ROS No nausea No vomiting No pain No rash Vital Sign Vital Signs Vital Signs Date Time Temp Pulse Resp B/P (MAP) Pulse Ox O2 Delivery O2 Flow Rate FiO2 09/22/18 03:45 Room Air 09/22/18 03:28 98.1 62 18 142/77 (98) 96 98.1 09/21/18 09:43 6 Physical Exam PHYSICAL EXAM GENERAL: NAD, Alert HEENT: PERRL, OC/OP NECK: Supple, no JVD, no LN LUNGS: Clear HEART: S1S2, no gallop, no murmur ABD: Soft, NT, no organomegaly, no rebound EXT: No edema, no cyanosis WASHERY ENGINEER: Alert, oriented x 3, no focal neurologic deficit SKIN: No rash IV: ok Labs Lab Laboratory Tests Test 09/21/18 07:48 09/22/18 03:50 White Blood Count 9.4 x10^3/uL (4.0-11.0) 9.8 x10^3/uL (4.0-11.0) Red Blood Count 3.45 x10^6/uL (3.50-5.40) 3.45 x10^6/uL (3.50-5.40) Hemoglobin 10.4 g/dL (12.0-15.5) 10.3 g/dL (12.0-15.5) Hematocrit 31.3 % (36.0-47.0) 31.3 % (36.0-47.0) Mean Corpuscular Volume 91 fL (79-100) 91 fL (79-100) Mean Corpuscular Hemoglobin 30 pg (25-35) 30 pg (25-35) Mean Corpuscular Hemoglobin Concent 33 g/dL (31-37) 33 g/dL (31-37) Red Cell Distribution Width 13.4 % (11.5-14.5) 13.8 % (11.5-14.5) Platelet Count 148 x10^3/uL (140-400) 155 x10^3/uL (140-400) Neutrophils (%) (Auto) 71 % (31-73) 64 % (31-73) Lymphocytes (%) (Auto) 19 % (24-48) 27 % (24-48) Monocytes (%) (Auto) 9 % (0-9) 8 % (0-9) Eosinophils (%) (Auto) 1 % (0-3) 1 % (0-3) Basophils (%) (Auto) 0 % (0-3) 0 % (0-3) Neutrophils # (Auto) 6.7 x10^3uL (1.8-7.7) 6.3 x10^3uL (1.8-7.7) Lymphocytes # (Auto) 1.8 x10^3/uL (1.0-4.8) 2.6 x10^3/uL (1.0-4.8) Monocytes # (Auto) 0.8 x10^3/uL (0.0-1.1) 0.7 x10^3/uL (0.0-1.1) Eosinophils # (Auto) 0.1 x10^3/uL (0.0-0.7) 0.1 x10^3/uL (0.0-0.7) Basophils # (Auto) 0.0 x10^3/uL (0.0-0.2) 0.0 x10^3/uL (0.0-0.2) Sodium Level 137 mmol/L (136-145) 140 mmol/L (136-145) Potassium Level 3.4 mmol/L (3.5-5.1) 3.4 mmol/L (3.5-5.1) Chloride Level 104 mmol/L (98-107) 105 mmol/L (98-107) Carbon Dioxide Level 24 mmol/L (21-32) 24 mmol/L (21-32) Anion Gap 9 (6-14) 11 (6-14) Blood Urea Nitrogen 5 mg/dL (7-20) 5 mg/dL (7-20) Creatinine 0.8 mg/dL (0.6-1.0) 0.9 mg/dL (0.6-1.0) Estimated GFR (Cockcroft-Gault) 88.1 76.9 BUN/Creatinine Ratio 6 (6-20) 6 (6-20) Glucose Level 100 mg/dL (70-99) 98 mg/dL (70-99) Calcium Level 8.0 mg/dL (8.5-10.1) 7.8 mg/dL (8.5-10.1) Total Bilirubin 4.5 mg/dL (0.2-1.0) 2.0 mg/dL (0.2-1.0) Aspartate Amino Transf (AST/SGOT) 212 U/L (15-37) 108 U/L (15-37) Alanine Aminotransferase (ALT/SGPT) 418 U/L (14-59) 350 U/L (14-59) Alkaline Phosphatase 165 U/L (46-116) 156 U/L (46-116) Total Protein 5.4 g/dL (6.4-8.2) 5.4 g/dL (6.4-8.2) Albumin 2.7 g/dL (3.4-5.0) 2.9 g/dL (3.4-5.0) Albumin/Globulin Ratio 1.0 (1.0-1.7) 1.2 (1.0-1.7) Lipase 76 U/L (73-393) 583 U/L (73-393) Amylase Level 87 U/L (25-115) Objective Assessment A 23 years old female patient with calculous cholecystitis s/p laparoscopic guided cholecystectomy with intraoperative cholangiogram that concerning for choledocholithiasis. She underwent ERCP with sphincterotomy with cholangiogram with no evidence of CBD stones were not evident. Patient doing well with trending down liver function tests. Plan Plan of Care * Advance diet as tolerated. * Continue to monitor LFTs. * send iron studies including ferritin. * GI available for any Q's. Thank you for involving us in the care of this interesting patient. DRE MOSER MD Sep 22, 2018 07:29
--- NOTE | 2018-09-22 09:36 | PDOC ---
RAZIA ROMERO CONCRETE JOURNEYMAN 09/22/18 0936: SURGICAL PROGRESS NOTE Subjective most pain is as drain site some mild epigastric, LUQ TTP no n/v Vital Signs Vital Signs Date Time Temp Pulse Resp B/P (MAP) Pulse Ox O2 Delivery O2 Flow Rate FiO2 09/22/18 07:00 98.2 70 18 138/78 (98) 96 Room Air 98.2 09/21/18 09:43 6 I&O Intake and Output 09/22/18 06:59 Intake Total 920 ml Output Total 200 ml Balance 720 ml Intake Oral 420 ml IV Total 500 ml Drainage Total 200 ml # Voids 5 General: Alert, Oriented X3, Cooperative, No acute distress Abdomen: Soft, Other (lap dressings dry, antoni serosang) Labs Laboratory Tests Test 09/21/18 07:48 09/22/18 03:50 White Blood Count 9.4 x10^3/uL (4.0-11.0) 9.8 x10^3/uL (4.0-11.0) Red Blood Count 3.45 x10^6/uL (3.50-5.40) 3.45 x10^6/uL (3.50-5.40) Hemoglobin 10.4 g/dL (12.0-15.5) 10.3 g/dL (12.0-15.5) Hematocrit 31.3 % (36.0-47.0) 31.3 % (36.0-47.0) Mean Corpuscular Volume 91 fL (79-100) 91 fL (79-100) Mean Corpuscular Hemoglobin 30 pg (25-35) 30 pg (25-35) Mean Corpuscular Hemoglobin Concent 33 g/dL (31-37) 33 g/dL (31-37) Red Cell Distribution Width 13.4 % (11.5-14.5) 13.8 % (11.5-14.5) Platelet Count 148 x10^3/uL (140-400) 155 x10^3/uL (140-400) Neutrophils (%) (Auto) 71 % (31-73) 64 % (31-73) Lymphocytes (%) (Auto) 19 % (24-48) 27 % (24-48) Monocytes (%) (Auto) 9 % (0-9) 8 % (0-9) Eosinophils (%) (Auto) 1 % (0-3) 1 % (0-3) Basophils (%) (Auto) 0 % (0-3) 0 % (0-3) Neutrophils # (Auto) 6.7 x10^3uL (1.8-7.7) 6.3 x10^3uL (1.8-7.7) Lymphocytes # (Auto) 1.8 x10^3/uL (1.0-4.8) 2.6 x10^3/uL (1.0-4.8) Monocytes # (Auto) 0.8 x10^3/uL (0.0-1.1) 0.7 x10^3/uL (0.0-1.1) Eosinophils # (Auto) 0.1 x10^3/uL (0.0-0.7) 0.1 x10^3/uL (0.0-0.7) Basophils # (Auto) 0.0 x10^3/uL (0.0-0.2) 0.0 x10^3/uL (0.0-0.2) Sodium Level 137 mmol/L (136-145) 140 mmol/L (136-145) Potassium Level 3.4 mmol/L (3.5-5.1) 3.4 mmol/L (3.5-5.1) Chloride Level 104 mmol/L (98-107) 105 mmol/L (98-107) Carbon Dioxide Level 24 mmol/L (21-32) 24 mmol/L (21-32) Anion Gap 9 (6-14) 11 (6-14) Blood Urea Nitrogen 5 mg/dL (7-20) 5 mg/dL (7-20) Creatinine 0.8 mg/dL (0.6-1.0) 0.9 mg/dL (0.6-1.0) Estimated GFR (Cockcroft-Gault) 88.1 76.9 BUN/Creatinine Ratio 6 (6-20) 6 (6-20) Glucose Level 100 mg/dL (70-99) 98 mg/dL (70-99) Calcium Level 8.0 mg/dL (8.5-10.1) 7.8 mg/dL (8.5-10.1) Total Bilirubin 4.5 mg/dL (0.2-1.0) 2.0 mg/dL (0.2-1.0) Aspartate Amino Transf (AST/SGOT) 212 U/L (15-37) 108 U/L (15-37) Alanine Aminotransferase (ALT/SGPT) 418 U/L (14-59) 350 U/L (14-59) Alkaline Phosphatase 165 U/L (46-116) 156 U/L (46-116) Total Protein 5.4 g/dL (6.4-8.2) 5.4 g/dL (6.4-8.2) Albumin 2.7 g/dL (3.4-5.0) 2.9 g/dL (3.4-5.0) Albumin/Globulin Ratio 1.0 (1.0-1.7) 1.2 (1.0-1.7) Lipase 76 U/L (73-393) 583 U/L (73-393) Amylase Level 87 U/L (25-115) Laboratory Tests Test 09/22/18 03:50 White Blood Count 9.8 x10^3/uL (4.0-11.0) Red Blood Count 3.45 x10^6/uL (3.50-5.40) Hemoglobin 10.3 g/dL (12.0-15.5) Hematocrit 31.3 % (36.0-47.0) Mean Corpuscular Volume 91 fL (79-100) Mean Corpuscular Hemoglobin 30 pg (25-35) Mean Corpuscular Hemoglobin Concent 33 g/dL (31-37) Red Cell Distribution Width 13.8 % (11.5-14.5) Platelet Count 155 x10^3/uL (140-400) Neutrophils (%) (Auto) 64 % (31-73) Lymphocytes (%) (Auto) 27 % (24-48) Monocytes (%) (Auto) 8 % (0-9) Eosinophils (%) (Auto) 1 % (0-3) Basophils (%) (Auto) 0 % (0-3) Neutrophils # (Auto) 6.3 x10^3uL (1.8-7.7) Lymphocytes # (Auto) 2.6 x10^3/uL (1.0-4.8) Monocytes # (Auto) 0.7 x10^3/uL (0.0-1.1) Eosinophils # (Auto) 0.1 x10^3/uL (0.0-0.7) Basophils # (Auto) 0.0 x10^3/uL (0.0-0.2) Sodium Level 140 mmol/L (136-145) Potassium Level 3.4 mmol/L (3.5-5.1) Chloride Level 105 mmol/L (98-107) Carbon Dioxide Level 24 mmol/L (21-32) Anion Gap 11 (6-14) Blood Urea Nitrogen 5 mg/dL (7-20) Creatinine 0.9 mg/dL (0.6-1.0) Estimated GFR (Cockcroft-Gault) 76.9 BUN/Creatinine Ratio 6 (6-20) Glucose Level 98 mg/dL (70-99) Calcium Level 7.8 mg/dL (8.5-10.1) Total Bilirubin 2.0 mg/dL (0.2-1.0) Aspartate Amino Transf (AST/SGOT) 108 U/L (15-37) Alanine Aminotransferase (ALT/SGPT) 350 U/L (14-59) Alkaline Phosphatase 156 U/L (46-116) Total Protein 5.4 g/dL (6.4-8.2) Albumin 2.9 g/dL (3.4-5.0) Albumin/Globulin Ratio 1.2 (1.0-1.7) Amylase Level 87 U/L (25-115) Lipase 583 U/L (73-393) Assessment/Plan s/p van, ERCP lipase mildly elevated LFTs improved home tomorrow if lipase down LANDY FELDMAN MD 09/23/18 1223: SURGICAL PROGRESS NOTE Assessment/Plan Agree with above RAZIA ROMERO APRN Sep 22, 2018 09:36 LANDY FELDMAN MD Sep 23, 2018 12:23
[2018-09-22] MEDS ORDERED: POTASSIUM CL 20MEQ D5-0.45NACL 1,000 ML IV ONE (09:45)
--- NOTE | 2018-09-22 10:19 | PDOC ---
Subjective: Subjective: She reports she did not sleep well last night. has nausea and vomiting of ingested material this morning. She is also complaining vaginal pain with discharge. She reports she has period a couple of weeks ago. Objective: Vital Signs: Vital Signs Date Time Temp Pulse Resp B/P (MAP) Pulse Ox O2 Delivery O2 Flow Rate FiO2 09/22/18 07:00 98.2 70 18 138/78 (98) 96 Room Air 98.2 09/21/18 09:43 6 PE: GEN: NAD HEENT: Atraumatic, PERRLA LUNGS: CTAB HEART: RRR, no murmurs ABD: Has drainage tube in situ with blood tinged out put. Has mild direct abdominal tenderness. EXTREMITY: No edema SKIN: No rashes, no jaundice NEURO/PSYCH: A & O 3 A/P: A 23 years old female patient with calculous cholecystitis s/p laparoscopic guided cholecystectomy with intraoperative cholangiogram that concerning for choledocholithiasis. She underwent ERCP with sphincterotomy with cholangiogram with no evidence of CBD stones were not evident. Patient doing well with trending down liver function tests. Plan Plan of Care * Advance diet as tolerated. * Continue to monitor LFTs. * Send iron studies including ferritin ( ordered) * May need to consult [employer] Consultant with vaginal pain and discharge as per patient. * GI available for any Q's. Thank you for involving us in the care of this interesting patient. DRE MOSER MD Sep 22, 2018 10:19
[2018-09-22 11:00] VITALS: BP 131/74
[2018-09-22] MEDS: ONDANSETRON PF 4 MG/2 ML VIAL. IV PRN (11:23)
[2018-09-22 15:00] VITALS: BP 120/87
[2018-09-22 19:00] VITALS: BP 117/76
--- NOTE | 2018-09-22 20:36 | PN ---
DATE: 09/22/2018 SUBJECTIVE: The patient is resting, slightly propped up in bed, in no apparent distress. On questioning her, she stated that the pain is tolerable and well controlled. Denied any nausea, vomiting. She apparently had her ERCP and no stones were found. Her liver enzymes are trending down; however, her serum lipase has risen from 76-583 and apparently a decision was made to keep the patient for another day and monitor her lipase. Meanwhile, her diet was advanced. PHYSICAL EXAMINATION: GENERAL: When I examined her, she looked well and was clearly in no apparent respiratory distress. VITAL SIGNS: Her heart rate was 70, blood pressure 138/78, temperature was 98.2, respiratory rate was 18 and oxygen saturation was 96%. The rest of clinical exam was stable. LABORATORY DATA: Showed that her serum sodium was 140, potassium 3.4, chloride 105, bicarbonate 24, anion gap of 11, BUN 5, creatinine 0.9, estimated GFR was 77 mL per minute. Her glucose 98, calcium was 7.8. Total bilirubin, AST, ALT, alkaline phosphatase is all elevated, but trending down. Her amylase normal. Lipase was high at 583. IMPRESSION: Acute cholecystitis status post laparoscopic cholecystectomy with intraoperative cholangiogram. She apparently underwent also endoscopic retrograde cholangiopancreatography with no stones found. She does have now acute pancreatitis with serum lipase high at 583. She has also hypokalemia. PLAN: My plan is to change her IV fluid to D5 half normal and repeat all her labs tomorrow and if her lipase normalizes and she is tolerating her diet, she can be discharged. BRYANT TRUJILLO MD DR: MENDOZA/maude JOB#: [id number] / [id number]
[2018-09-22] MEDS: LACTOBACILLUS RHAMNOSUS GG 1 CAPSULE. PO SCH (21:00)
[2018-09-22 23:00] VITALS: BP 124/68
[2018-09-23] MEDS: PIPERACILLIN/TAZOBACTAM 3.375 GM in IV NORMAL SALINE 50ML 50 ML IV SCH ×3 (00:21→10:23)
[2018-09-23] MEDS: KETOROLAC 15 MG/ML VIAL. IV PRN ×2 (00:24→10:22)
[2018-09-23 02:57] VITALS: BP 124/66
[2018-09-23] MEDS: oxyCODONE/APAP 5/325 1 TAB TABLET PO PRN ×2 (05:13→09:44)
[2018-09-23] MEDS: PANTOPRAZOLE IV PUSH 40 MG VIAL. IVP SCH (06:12)
[2018-09-23 07:00] VITALS: BP 140/92
[2018-09-23 09:12] LABS: BASO % 0 % (0-3); EOS # 0.3 x10^3/uL (0.0-0.7); EOS % 3 % (0-3); HEMATOCRIT 33.8 % (36.0-47.0); HEMOGLOBIN 11.3 g/dL (12.0-15.5); LYMPH # 1.9 x10^3/uL (1.0-4.8); LYMPH % 20 % (24-48); MEAN CORPUSCULAR HEMOGLOBIN 30 pg (25-35); MEAN CORPUSCULAR HGB CONC 34 g/dL (31-37); MEAN CORPUSCULAR VOLUME 90 fL (79-100); MONO # 0.7 x10^3/uL (0.0-1.1); MONO % 7 % (0-9); NEUT # 6.5 x10^3uL (1.8-7.7); NEUT % 70 % (31-73); PLATELET COUNT 172 x10^3/uL (140-400); RED BLOOD COUNT 3.75 x10^6/uL (3.50-5.40); RED CELL DISTRIBUTION WIDTH 13.8 % (11.5-14.5); WHITE BLOOD COUNT 9.4 x10^3/uL (4.0-11.0)
--- NOTE | 2018-09-23 09:14 | PN ---
DATE: 09/23/2018 SUBJECTIVE: The patient is resting slightly propped up in bed, in no apparent distress. She is awake, alert, continued to complain of abdominal pain, however she has no nausea, no vomiting. She is tolerating her advanced diet. Her lab work is still pending at the time of this dictation. OBJECTIVE: GENERAL: When I examined her, she looked well and was clearly in no apparent respiratory distress. No pallor, jaundice, cyanosis, or thyromegaly. No jugular venous distension. No lower limb edema. VITAL SIGNS: Her heart rate was 55, blood pressure 140/92, temperature was 98.2, respiratory rate was 16, and oxygen saturation was 98%. The rest of clinical exam is stable. ABDOMEN: She has some tenderness in the right upper quadrant. IN'S AND OUT'S: Her intake was 920, output was 200. LABORATORY AND DIAGNOSTIC DATA: Today's labs are still pending at the time of this dictation. ASSESSMENT AND PLAN: My plan is obviously to await for the lab results and if her serum lipase has normalized and her surgical team is okay with her to be discharged, we will discharge her home to follow with her primary care physician. I wrote a prescription for Percocet and Zofran. BRYANT TRUJILLO MD DR: MENDOZA/maude JOB#: [id number] / [id number]
[2018-09-23 09:31] LABS: ALBUMIN 3.1 g/dL (3.4-5.0); CALCIUM 8.5 mg/dL (8.5-10.1); CREATININE 0.9 mg/dL (0.6-1.0); GFR 76.9; POTASSIUM 3.4 mmol/L (3.5-5.1); TOTAL BILIRUBIN 1.3 mg/dL (0.2-1.0); TOTAL PROTEIN 6.2 g/dL (6.4-8.2)
[2018-09-23] MEDS: LACTOBACILLUS RHAMNOSUS GG 1 CAPSULE. PO SCH (09:43)
--- NOTE | 2018-09-23 09:46 | PDOC ---
RAZIA ROMERO SCIENCE WRITER 09/23/18 0946: SURGICAL PROGRESS NOTE Subjective improved tolerating diet ambulating Vital Signs Vital Signs Date Time Temp Pulse Resp B/P (MAP) Pulse Ox O2 Delivery O2 Flow Rate FiO2 09/23/18 09:44 98 Room Air 09/23/18 07:00 98.2 55 16 140/92 (108) 98.2 09/22/18 22:00 6.0 I&O Intake and Output 09/23/18 07:00 Intake Total 1146 ml Output Total 60 ml Balance 1086 ml Intake Oral 545 ml IV Total 601 ml Drainage Total 60 ml # Voids 11 # Bowel Movements 1 General: Alert, Oriented X3, Cooperative, No acute distress Abdomen: Soft, Other (ND, lap dressings dry, antoni serosang ) Labs Laboratory Tests Test 09/22/18 03:50 09/23/18 08:09 White Blood Count 9.8 x10^3/uL (4.0-11.0) 9.4 x10^3/uL (4.0-11.0) Red Blood Count 3.45 x10^6/uL (3.50-5.40) 3.75 x10^6/uL (3.50-5.40) Hemoglobin 10.3 g/dL (12.0-15.5) 11.3 g/dL (12.0-15.5) Hematocrit 31.3 % (36.0-47.0) 33.8 % (36.0-47.0) Mean Corpuscular Volume 91 fL (79-100) 90 fL (79-100) Mean Corpuscular Hemoglobin 30 pg (25-35) 30 pg (25-35) Mean Corpuscular Hemoglobin Concent 33 g/dL (31-37) 34 g/dL (31-37) Red Cell Distribution Width 13.8 % (11.5-14.5) 13.8 % (11.5-14.5) Platelet Count 155 x10^3/uL (140-400) 172 x10^3/uL (140-400) Neutrophils (%) (Auto) 64 % (31-73) 70 % (31-73) Lymphocytes (%) (Auto) 27 % (24-48) 20 % (24-48) Monocytes (%) (Auto) 8 % (0-9) 7 % (0-9) Eosinophils (%) (Auto) 1 % (0-3) 3 % (0-3) Basophils (%) (Auto) 0 % (0-3) 0 % (0-3) Neutrophils # (Auto) 6.3 x10^3uL (1.8-7.7) 6.5 x10^3uL (1.8-7.7) Lymphocytes # (Auto) 2.6 x10^3/uL (1.0-4.8) 1.9 x10^3/uL (1.0-4.8) Monocytes # (Auto) 0.7 x10^3/uL (0.0-1.1) 0.7 x10^3/uL (0.0-1.1) Eosinophils # (Auto) 0.1 x10^3/uL (0.0-0.7) 0.3 x10^3/uL (0.0-0.7) Basophils # (Auto) 0.0 x10^3/uL (0.0-0.2) 0.0 x10^3/uL (0.0-0.2) Sodium Level 140 mmol/L (136-145) 138 mmol/L (136-145) Potassium Level 3.4 mmol/L (3.5-5.1) 3.4 mmol/L (3.5-5.1) Chloride Level 105 mmol/L (98-107) 102 mmol/L (98-107) Carbon Dioxide Level 24 mmol/L (21-32) 30 mmol/L (21-32) Anion Gap 11 (6-14) 6 (6-14) Blood Urea Nitrogen 5 mg/dL (7-20) 4 mg/dL (7-20) Creatinine 0.9 mg/dL (0.6-1.0) 0.9 mg/dL (0.6-1.0) Estimated GFR (Cockcroft-Gault) 76.9 76.9 BUN/Creatinine Ratio 6 (6-20) 4 (6-20) Glucose Level 98 mg/dL (70-99) 90 mg/dL (70-99) Calcium Level 7.8 mg/dL (8.5-10.1) 8.5 mg/dL (8.5-10.1) Iron Level 54 ug/dL (50-170) Total Iron Binding Capacity 261 ug/dL (250-450) Iron Saturation 21 % (15-34) Ferritin 57 ng/mL (8-252) Total Bilirubin 2.0 mg/dL (0.2-1.0) 1.3 mg/dL (0.2-1.0) Aspartate Amino Transf (AST/SGOT) 108 U/L (15-37) 68 U/L (15-37) Alanine Aminotransferase (ALT/SGPT) 350 U/L (14-59) 293 U/L (14-59) Alkaline Phosphatase 156 U/L (46-116) 150 U/L (46-116) Total Protein 5.4 g/dL (6.4-8.2) 6.2 g/dL (6.4-8.2) Albumin 2.9 g/dL (3.4-5.0) 3.1 g/dL (3.4-5.0) Albumin/Globulin Ratio 1.2 (1.0-1.7) 1.0 (1.0-1.7) Amylase Level 87 U/L (25-115) Lipase 583 U/L (73-393) 127 U/L (73-393) Laboratory Tests Test 09/23/18 08:09 White Blood Count 9.4 x10^3/uL (4.0-11.0) Red Blood Count 3.75 x10^6/uL (3.50-5.40) Hemoglobin 11.3 g/dL (12.0-15.5) Hematocrit 33.8 % (36.0-47.0) Mean Corpuscular Volume 90 fL (79-100) Mean Corpuscular Hemoglobin 30 pg (25-35) Mean Corpuscular Hemoglobin Concent 34 g/dL (31-37) Red Cell Distribution Width 13.8 % (11.5-14.5) Platelet Count 172 x10^3/uL (140-400) Neutrophils (%) (Auto) 70 % (31-73) Lymphocytes (%) (Auto) 20 % (24-48) Monocytes (%) (Auto) 7 % (0-9) Eosinophils (%) (Auto) 3 % (0-3) Basophils (%) (Auto) 0 % (0-3) Neutrophils # (Auto) 6.5 x10^3uL (1.8-7.7) Lymphocytes # (Auto) 1.9 x10^3/uL (1.0-4.8) Monocytes # (Auto) 0.7 x10^3/uL (0.0-1.1) Eosinophils # (Auto) 0.3 x10^3/uL (0.0-0.7) Basophils # (Auto) 0.0 x10^3/uL (0.0-0.2) Sodium Level 138 mmol/L (136-145) Potassium Level 3.4 mmol/L (3.5-5.1) Chloride Level 102 mmol/L (98-107) Carbon Dioxide Level 30 mmol/L (21-32) Anion Gap 6 (6-14) Blood Urea Nitrogen 4 mg/dL (7-20) Creatinine 0.9 mg/dL (0.6-1.0) Estimated GFR (Cockcroft-Gault) 76.9 BUN/Creatinine Ratio 4 (6-20) Glucose Level 90 mg/dL (70-99) Calcium Level 8.5 mg/dL (8.5-10.1) Total Bilirubin 1.3 mg/dL (0.2-1.0) Aspartate Amino Transf (AST/SGOT) 68 U/L (15-37) Alanine Aminotransferase (ALT/SGPT) 293 U/L (14-59) Alkaline Phosphatase 150 U/L (46-116) Total Protein 6.2 g/dL (6.4-8.2) Albumin 3.1 g/dL (3.4-5.0) Albumin/Globulin Ratio 1.0 (1.0-1.7) Lipase 127 U/L (73-393) Assessment/Plan s/p van, ERCP lipase normal [facility] LANDY FELDMAN MD 09/23/18 1224: SURGICAL PROGRESS NOTE Assessment/Plan Agree with above RAZIA ROMERO APRN Sep 23, 2018 09:46 LANDY FELDMAN MD Sep 23, 2018 12:24
[2018-09-23] MEDS ORDERED: OXYC1TAB15 PO (09:49)
--- NOTE | 2018-09-23 10:22 | DISCH ---
DISCHARGE INSTRUCTIONS Condition on Discharge Condition on Discharge: Stable Activity After Discharge Activity Instructions for Disc: No restrictions Bathing Instructions: Shower-keep dressing dry, No Tub Bath until see Lifting Instructions after Dis: No heavy lifting, No pulling or pushing, Do not lift >10 pounds Exercise Instruction after Dis: Walk 15 min, 3 x per day Driving Instructions after Dis: Do not drive (while taking pain medication), No driving for 2 weeks Sexual Activity Restrictions: no exertion for 2 weeks Diet after Discharge Diet after Discharge: Low Fat Wound Incision Care Wound/Incision Care: Change dressing, May get incision wet Other wound/incision instructi: Keep dry and intact Follow-Up Follow up with: Primary in 1-2 weeks Follow Up With: Dr. Pace in 2 weeks [phone] Treatment/Equipment after DC Adaptive Equipment Issued: None RAZIA ROMERO APRN Sep 23, 2018 10:22
[2018-09-23] MEDS ORDERED: POTASSIUM CHLORIDE 20 MEQ TABLET.ER. PO ONE (10:30)
--- NOTE | 2018-09-23 14:03 | NUR ---
Pt was given all discharge instructions, follow up information, prescriptions and teaching. OLEGARIO drain removed. No tele. Iv removed. Pain medicine given before departure. Pt's family driving her back home. All belongings left with pt at time of discharge. Pt was escorted out via wheelchair by [facility], at 1221. Pt will follow up with obmoon and Dr. Pace in two weeks.
--- NOTE | 2018-09-24 11:22 | PDOC3 ---
Discharge Summary Visit Information Date of Admission: Sep 19, 2018 Date of Discharge: Sep 23, 2018 Admitting Diagnosis Comment: cholecystitis Final Diagnosis choledocholithiasis Brief Hospital Course Allergies Allergies Coded Allergies Type Severity Reaction Last Updated Verified adhesive Allergy Intermediate Rash 09/21/18 Yes Vital Signs Vital Signs Date Time Temp Pulse Resp B/P (MAP) Pulse Ox O2 Delivery O2 Flow Rate FiO2 09/23/18 14:06 Room Air 09/23/18 09:44 98 09/23/18 07:00 98.2 55 16 140/92 (108) 98.2 Lab Results Laboratory Tests Test 09/23/18 08:09 White Blood Count 9.4 x10^3/uL (4.0-11.0) Red Blood Count 3.75 x10^6/uL (3.50-5.40) Hemoglobin 11.3 g/dL (12.0-15.5) Hematocrit 33.8 % (36.0-47.0) Mean Corpuscular Volume 90 fL (79-100) Mean Corpuscular Hemoglobin 30 pg (25-35) Mean Corpuscular Hemoglobin Concent 34 g/dL (31-37) Red Cell Distribution Width 13.8 % (11.5-14.5) Platelet Count 172 x10^3/uL (140-400) Neutrophils (%) (Auto) 70 % (31-73) Lymphocytes (%) (Auto) 20 % (24-48) Monocytes (%) (Auto) 7 % (0-9) Eosinophils (%) (Auto) 3 % (0-3) Basophils (%) (Auto) 0 % (0-3) Neutrophils # (Auto) 6.5 x10^3uL (1.8-7.7) Lymphocytes # (Auto) 1.9 x10^3/uL (1.0-4.8) Monocytes # (Auto) 0.7 x10^3/uL (0.0-1.1) Eosinophils # (Auto) 0.3 x10^3/uL (0.0-0.7) Basophils # (Auto) 0.0 x10^3/uL (0.0-0.2) Sodium Level 138 mmol/L (136-145) Potassium Level 3.4 mmol/L (3.5-5.1) Chloride Level 102 mmol/L (98-107) Carbon Dioxide Level 30 mmol/L (21-32) Anion Gap 6 (6-14) Blood Urea Nitrogen 4 mg/dL (7-20) Creatinine 0.9 mg/dL (0.6-1.0) Estimated GFR (Cockcroft-Gault) 76.9 BUN/Creatinine Ratio 4 (6-20) Glucose Level 90 mg/dL (70-99) Calcium Level 8.5 mg/dL (8.5-10.1) Total Bilirubin 1.3 mg/dL (0.2-1.0) Aspartate Amino Transf (AST/SGOT) 68 U/L (15-37) Alanine Aminotransferase (ALT/SGPT) 293 U/L (14-59) Alkaline Phosphatase 150 U/L (46-116) Total Protein 6.2 g/dL (6.4-8.2) Albumin 3.1 g/dL (3.4-5.0) Albumin/Globulin Ratio 1.0 (1.0-1.7) Lipase 127 U/L (73-393) Brief Hospital Course Ms. Sam is a 23 old female who underwent laparoscopic cholecystectomy. Noted to have choledocholithiasis. ERCP by GI. Tolerating diet, ambulating and pain managed. Labs returning to normal. Ready to discharge home Discharge Information Condition at Discharge: Stable Follow Up: Weeks Disposition/Orders: D/C to Home Scheduled Info (No Known Medications Prior To Admisstion) Each, 1 EACH MC 1X for no medications, (Reported) Entered as Reported by: TARI GARZON on 09/20/18332 Last Action: New Order on 09/20/18332 by TARI GARZON Scheduled PRN Oxycodone/Apap 5-325 (Percocet 5-325 Mg Tablet ) 1 Each Tablet, 2 TAB PO PRN Q4HRS PRN for PAIN MOD TO SEV, #30 Prescribed by: Razia Romero on 09/23/18 0949 RAZIA ROMERO FURNACE MECHANIC Sep 24, 2018 11:22
--- NOTE | 2018-10-05 07:48 | RAD ---
ERCP, 09/21/2018: HISTORY: Postcholecystectomy pain 3 spot films from surgery are presented for review on a delayed basis. 2.27 minutes of fluoroscopy time was utilized. The biliary system is partially opacified via an endoscopically placed cannula. Reportedly a sphincterotomy was performed with duct dilatation. On image #3 there is a rounded filling defect in the distal common duct suggesting a retained common duct calculus. Electronically signed by: Jann Serna MD (10/05/2018 7:45 AM) [facility]
== END 2018-09-23 12:21 | disposition home or self-care (01) | DRG 417 ==
LOC: 4 NORTH 19:29
PROVIDERS: ADMIT Internal Medicine; ATTEND Surgery
PROC: BF101ZZ Fluoroscopy of Bile Ducts using Low Osmolar Contrast (ICD-10-PCS; 2018-09-20)
PROC: 0FT44ZZ Resection of Gallbladder, Percutaneous Endoscopic Approach (ICD-10-PCS; principal; 2018-09-20 11:30)
PROC: 0F998ZZ Drainage of Common Bile Duct, Via Natural or Artificial Opening Endoscopic (ICD-10-PCS; 2018-09-21)
PROC: BF111ZZ Fluoroscopy of Biliary and Pancreatic Ducts using Low Osmolar Contrast (ICD-10-PCS; 2018-09-21)
PROC: 0F798ZZ Dilation of Common Bile Duct, Via Natural or Artificial Opening Endoscopic (ICD-10-PCS; 2018-09-21)
DX: K80.62 Calculus of gallbladder and bile duct with acute cholecystitis without obstruction (principal); K85.90 Acute pancreatitis without necrosis or infection, unspecified; E87.6 Hypokalemia; F12.90 Cannabis use, unspecified, uncomplicated; F17.210 Nicotine dependence, cigarettes, uncomplicated; F32.9 Major depressive disorder, single episode, unspecified; D64.9 Anemia, unspecified; F41.9 Anxiety disorder, unspecified; K82.8 Other specified diseases of gallbladder; Z83.3 Family history of diabetes mellitus
CPT/HCPCS: 36415; 43262; 43264; 74300; 74330; 80053; 81025; 82150; 82728; 83540; 83550; 83690; 85025; 85027; 88304; A7015; C1726; C1757; C9113; J0330; J0780; J1100; J1170; J1885; J2001; J2175; J2250; J2270; J2405; J2543; J2704; J3010; J3490; J7030; J7120; Q0163; Q9967